=== PATIENT | female | born 1975 | race Caucasian/White ===

== ENCOUNTER 2019-09-29 16:57 | Emergency (ER) | payer BC ==
[~2019-09-29] VITALS: Ht 162.6 cm; Wt 65.3 kg
[2019-09-29 17:18] LABS: ABSOLUTE NEUTROPHILS 2.8 thou/uL (1.4-8.2); BASOPHILS 1.1 % (0.0-2.0); EOSINOPHILS 7.6 % (0.0-3.0); HEMATOCRIT 39.8 % (37.0-47.0); HEMOGLOBIN 13.1 gm/dL (12.0-15.0); LYMPHOCYTES 32.1 % (24.0-44.0); MCH 30.5 pg (26.0-34.0); MCV 92.3 fL (80.0-100.0); MONOCYTES 7.7 % (1.0-8.0); PLATELET COUNT 278 thou/uL (150-400); POLYS 51.5 % (36.0-66.0); RBC 4.31 mil/uL (4.20-5.00); RDW 13.1 % (10.5-14.5); WBC 5.4 thou/uL (4.0-11.0)
[2019-09-29 17:26] LABS: ANION GAP 8 mmol/L (7-16); BUN 19 mg/dL (7-18); CALCIUM 9.1 mg/dL (8.5-10.1); CHLORIDE 102 mmol/L (98-107); CO2 27 mmol/L (21-32); CREATININE 0.8 mg/dL (0.6-1.0); GLUCOSE 97 mg/dL (74-106); POTASSIUM 3.8 mmol/L (3.5-5.1); SODIUM 137 mmol/L (136-145)
[2019-09-29 17:36] LABS: ALBUMIN 3.8 g/dL (3.4-5.0); SGOT 11 U/L (15-37); SGPT 41 U/L (30-65); TOTAL BILIRUBIN 0.2 mg/dL (<0.1-1.0); TOTAL PROTEIN 7.9 g/dL (6.4-8.2); TROPONIN-I <0.06 ng/mL (<0.06)
[2019-09-29 19:11] VITALS: BP 117/62
--- NOTE | 2019-10-01 09:45 | EKG ---
[place] [address] [facility] [place] [address] ELECTROCARDIOGRAM REPORT Name: THOMAS MACIEL Room #: [facility]#: [id number] Admission: 09/29/19 Attend Phys: Discharge: 09/29/19 Date of : 73 Report #: [id number] THIS REPORT FOR: //name// [facility] ED Test Date: 2019-09-29 Test Time: 16:57:47 Pat Name: THOMAS MACIEL Department: Room: Gender: F [employer]: CAROLYNN : 1975 Requested By: Mishel Stevenson Order Number: [id number] MD: Yusuf Hawthorne Measurements Intervals [place] Rate: 70 P: 72 FL: 125 QRS: 47 QRSD: 94 T: 46 QT: 410 QTc: 443 Interpretive Statements Sinus rhythm Normal tracing No previous ECG available for comparison Electronically Signed On 10-01-2019 9:45:15 [employer] by Yusuf Hawthorne [email or web address] <ELECTRONICALLY SIGNED> By: Yusuf Hawthorne MD, [facility] 10/01/19 0945 [id number] 1657 Yusuf Hawthorne MD, FACC /EPI
== END 2019-09-29 19:29 | disposition home or self-care (01) ==
LOC: ER 16:57
PROVIDERS: Emergency Medicine
DX: R07.89 Other chest pain (principal)